=== PATIENT | male | born 1970 | race African-American/Black ===

== ENCOUNTER 2018-01-13 23:56 | Observation (INO) | payer BC, OTHER ==
[2018-01-14] MEDS ORDERED: ASPIRIN 81 MG TABLET, CHEWABLE PO ONE (01:25)
--- NOTE | 2018-01-14 01:29 | ER Document Report ---
ED Medical Screen (RME) - General Chief Complaint: Shortness Of Breath Stated Complaint: SHORTNESS OF BREATH Time Seen by Provider: 01/14/18 01:17 Notes: 47-year-old male, chief complaint of an episode at around 11 PM where he felt short of breath, he broke out into a sweat, he felt about 2 seconds of discomfort in his chest, and he felt like his heart was beating irregularly. He states symptoms resolved and have not come back. He states he did have a little bit more caffeine intake today drinking a Mountain Dew but nothing extreme. Denies recreational drugs. Denies any daily medications or past medical history. Works out regularly. Denies any known family history of cardiac disease/SD. TRAVEL OUTSIDE OF THE [place] IN LAST 30 DAYS: No - Related Data Allergies/Adverse Reactions: No Known Allergies Allergy (Verified 03/19/15 13:05) Past Medical History Pulmonary Medical History: Denies: Hx Tuberculosis Past Surgical History: Reports: Hx Orthopedic Surgery - Jaw and foot - Immunizations Hx Diphtheria, Pertussis, Tetanus Vaccination: Yes Physical Exam - Vital signs Vitals: Temp Pulse Resp BP Pulse Ox 98.1 F 62 16 138/72 H 96 01/14/18 00:28 01/14/18 00:28 01/14/18 00:01/14/18 00:01/14/18 00:28 - Respiratory Respiratory status: No respiratory distress Breath sounds: Normal. No: Decreased air movement, Wheezing - Cardiovascular Rhythm: Regular. No: Tachycardia Heart sounds: Normal auscultation, S1 appreciated, S2 appreciated Normal capillary refill: Yes Course - Vital Signs Vital signs: Temp Pulse Resp BP Pulse Ox 98.1 F 62 16 138/72 H 96 01/14/18 00:28 01/14/18 00:28 01/14/18 00:28 01/14/18 00:01/14/18 00:28
[2018-01-14 02:17] LABS: ABSOLUTE EOSINOPHILS # (AUTO) 0.2 10^3/uL (0.0-0.6); ABSOLUTE LYMPHOCYTES (AUTO) 2.1 10^3/uL (0.5-4.7); ABSOLUTE MONOCYTES (AUTO) 0.5 10^3/uL (0.1-1.4); ABSOLUTE NEUT (AUTO) 3.2 10^3/uL (1.7-8.2); BASOPHILS % (AUTO) 0.6 % (0-2); EOSINOPHILS % (AUTO) 2.6 % (0-6); HEMATOCRIT 36.3 % (37.9-51.0); HEMOGLOBIN 12.5 g/dL (13.5-17.0); LYMPHOCYTES % (AUTO) 34.4 % (13-45); MEAN CORPUSCULAR HEMOGLOBIN 31.6 pg (27.0-33.4); MEAN CORPUSCULAR HGB CONC 34.4 g/dL (32.0-36.0); MEAN CORPUSCULAR VOLUME 92 fl (80-97); MONOCYTES % (AUTO) 8.9 % (3-13); PLATELET COUNT 192 10^3/uL (150-450); RED BLOOD COUNT 3.95 10^6/uL (4.35-5.55); RED CELL DISTRIBUTION WIDTH 12.3 % (11.5-14.0); SEGMENTED NEUTROPHILS % (AUTO) 53.5 % (42-78); TOTAL CELLS COUNTED % (AUTO) 100 %
--- NOTE | 2018-01-14 02:21 | RADIOLOGY REPORT (SQ) ---
EXAM DESCRIPTION: XR CHEST 1 VIEW CLINICAL HISTORY: 47 years Male, chest pain COMPARISON: 8.10.15 NUMBER OF VIEWS/TECHNIQUE: 1/AP FINDINGS: Adequate lung volume, clear parenchyma, normal cardiac silhouette, and intact bony thorax. IMPRESSION: No acute cardiopulmonary findings.
[2018-01-14 02:40] LABS: ALANINE AMINOTRANSFERASE 45 U/L (21-72); ALBUMIN 3.8 g/dL (3.5-5.0); ALKALINE PHOSPHATASE 55 U/L (38-126); ANION GAP 8 (5-19); ASPARTATE AMINO TRANSFERASE 31 U/L (17-59); BILIRUBIN,DIRECT 0.3 mg/dL (0.0-0.4); BILIRUBIN,TOTAL 0.3 mg/dL (0.2-1.3); BLOOD UREA NITROGEN 12 mg/dL (7-20); CALCIUM 9.2 mg/dL (8.4-10.2); CARBON DIOXIDE 29 mmol/L (22-30); CHLORIDE 111 mmol/L (98-107); CREATINE KINASE 556 U/L (55-170); GLUCOSE 88 mg/dL (75-110); POTASSIUM 4.1 mmol/L (3.6-5.0); SODIUM 148.1 mmol/L (137-145); TOTAL PROTEIN 6.9 g/dL (6.3-8.2)
[2018-01-14 02:49] LABS: CREATINE KINASE MB 1.15 ng/mL (<4.55)
[2018-01-14 02:59] LABS: TROPONIN I < 0.012 ng/mL
--- NOTE | 2018-01-14 03:18 | ER Document Report ---
ED General - General Chief Complaint: Shortness Of Breath Stated Complaint: SHORTNESS OF BREATH Time Seen by Provider: 01/14/18 01:17 Notes: Patient is a pleasant 39-year-old male who presents with complaint of some exertional dyspnea throughout the day. He said tonight when he was driving his car he felt sudden onset of chest pain and felt as if his heart was slowing down. He said he felt unwell. He then got diaphoretic and sweaty. Says it lasts a few seconds and stopped and then occurred one more time. He then turned around and came to the hospital. Currently he says he feels well and the chest pain is since resolved. He denies any previous history of heart issues. He denies any anabolic steroid use. He denies any drug use. He denies any recent fevers or infections. Said his mother has some form of heart disease but is not exactly sure what kind she has. He has no other complaints at this time. He is otherwise healthy does not take medications. TRAVEL OUTSIDE OF THE [place] IN LAST 30 DAYS: No - Related Data Allergies/Adverse Reactions: No Known Allergies Allergy (Verified 03/19/15 13:05) Past Medical History - Social History Smoking Status: Never Smoker Frequency of alcohol use: None Drug Abuse: None Family History: Reviewed & Not Pertinent Pulmonary Medical History: Denies: Hx Tuberculosis Past Surgical History: Reports: Hx Orthopedic Surgery - Jaw and foot - Immunizations Hx Diphtheria, Pertussis, Tetanus Vaccination: Yes Review of Systems - Review of Systems Notes: My Normal Review Basic REVIEW OF SYSTEMS: CONSTITUTIONAL : Denies fever, chills, or sweats. Denies recent illness. EENT: Denies eye, ear, throat, or mouth pain or symptoms. Denies nasal or sinus congestion. CARDIOVASCULAR: Had chest pain RESPIRATORY: Denies cough, cold, or chest congestion. Denies shortness of breath, difficulty breathing, or wheezing. GASTROINTESTINAL: Denies abdominal pain. Denies nausea, vomiting, or diarrhea. MUSCULOSKELETAL: Denies neck or back pain or joint pain or swelling. SKIN: Denies rash or skin lesions. NEUROLOGICAL: Denies altered mental status or loss of consciousness. Denies headache. Denies weakness or paralysis or loss of use of either side. Denies problems with gait or speech. Denies sensory or motor loss. PSYCHIATRIC: Denies anxiety or stress or depression. ALL OTHER SYSTEMS REVIEWED AND NEGATIVE. Physical Exam - Vital signs Vitals: Temp Pulse Resp BP Pulse Ox 98.1 F 62 16 138/72 H 96 01/14/18 00:28 01/14/18 00:28 01/14/18 00:28 01/14/18 00:28 01/14/18 00:28 - Notes Notes: General Appearance: Well nourished, alert, cooperative, no acute distress, no obvious discomfort. Well-appearing. Vitals: reviewed, See vital signs table. Head: no swelling or tenderness to the head Eyes: PERRL, EOMI, Conjuctiva clear Mouth: No decreasd moisture Throat: No tonsillar inflammation, No airway obstruction, No lymphadenopathy Lungs: No wheezing, No rales, No rhonci, No accessory muscle use, good air exchange bilaterally. Heart: Normal rate, Regular rythm, No murmur, no rub Abdomen: Normal BS, soft, No rigidity, No abdominal tenderness, No guarding, no rebound, no abdominal masses, no organomegaly Extremities: strength 5/5 in all extremities, good pulses in all extremities, no swelling or tenderness in the extremities, no edema. Skin: warm, dry, appropriate color, no rash Neuro: speech clear, oriented x 3, normal affect, responds appropriately to questions. Course - Re-evaluation Re-evalutation: 01/14/18 05:47 The cause of the patient's episode is not clear. I am very concerned that the patient had this onset of chest pain and diaphoresis. This could represent an underlying arrhythmia. His initial cardiac troponin is negative. He has never had these symptoms before. I do not suspect anxiety the patient is very calm is no history of anxiety and had no reason to be think telemetry observation is appropriate. I did speak with the hospitalist, Dr. Fischer, who agrees to evaluate the patient for admission. Dictation of this chart was performed using voice recognition software; therefore, there may be some unintended grammatical errors. - Vital Signs Vital signs: Temp Pulse Resp BP Pulse Ox 98.1 F 62 16 138/72 H 96 01/14/18 00:28 01/14/18 00:28 01/14/18 00:28 01/14/18 00:28 01/14/18 00:28 - Laboratory Result Diagrams: 01/14/18 02:03 01/14/18 02:03 Laboratory results interpreted by me: 01/14/18 01/14/18 01/14/18 02:03 02:03 02:03 RBC 3.95 L Hgb 12.5 L Hct 36.3 L D-Dimer 0.74 H Sodium 148.1 H Chloride 111 H Creatine Kinase 556 H Urine Urobilinogen 01/14/18 04:00 RBC Hgb Hct D-Dimer Sodium Chloride Creatine Kinase Urine Urobilinogen 4.0 H - EKG Interpretation by Me Additional EKG results interpreted by me: 01/14/18 03:07 EKG is reviewed and interpreted by me. EKG shows sinus rhythm with rate of [address] segment elevation or depression. UT interval, QRS duration, QTc intervals are within normal range. She does have T-wave inversion in lead III but this is unchanged comparison to his old EKG from March 19, 2015. Discharge - Discharge Clinical Impression: Chest pain Qualifiers: Chest pain type: unspecified Qualified Code(s): R07.9 - Chest pain, unspecified Condition: Stable Disposition: ADMITTED OBSERVATION Admitting Provider: Hospitalist Unit Admitted: Telemetry
[2018-01-14 04:17] LABS: APPEARANCE,URINE CLEAR; BILIRUBIN,URINE NEGATIVE (NEGATIVE); COLOR,URINE YELLOW; GLUCOSE, URINE NEGATIVE (NEGATIVE); KETONES,URINE NEGATIVE (NEGATIVE); LEUKOCYTE ESTERASE,URINE NEGATIVE (NEGATIVE); NITRITE,URINE NEGATIVE (NEGATIVE); PROTEIN,URINE NEGATIVE (NEGATIVE); URINE SPECIFIC GRAVITY 1.021
[2018-01-14] MEDS ORDERED: NORMAL SALINE 1000 ML 1,000 ML IV ONE (04:29)
[2018-01-14 04:31] LABS: URINE AMPHETAMINES SCREEN NEGATIVE; URINE BARBITURATES SCREEN NEGATIVE; URINE BENZODIAZEPINES SCREEN NEGATIVE; URINE COCAINE SCREEN NEGATIVE; URINE MARIJUANA (THC) SCREEN NEGATIVE; URINE METHADONE SCREEN NEGATIVE; URINE PHENCYCLIDINE SCREEN NEGATIVE
--- NOTE | 2018-01-14 05:36 | RADIOLOGY REPORT (SQ) ---
EXAM DESCRIPTION: CT CHEST ANGIOGRAPHY WITHOUT THEN WITH IV CONTRAST CLINICAL HISTORY: 47 years Male, chest pain Comparison: None. Technique: IV contrast. Coronal and sagittal reformat. 3d reconstruction. This exam was performed according to our departmental dose-optimization program, which includes automated exposure control, adjustment of the mA and/or kV according to patient size and/or use of iterative reconstruction technique.[facility]: Dose Right [facility]: CareDose [facility]: Dose Right [facility]: Teradose 4D [facility]: Athenix LIMITATIONS: None Findings: No pulmonary embolus. No right ventricular strain. Clear lungs. Inferior neck, axillae, mediastinum, lungs, airway, lymphatics, heart, vasculature, upper abdomen, and musculoskeleton appear unremarkable. Impression: No pulmonary embolus. No acute cardiopulmonary findings.
[2018-01-14] MEDS ORDERED: DEXTROSE 50%-WATER 25 GM/50 ML DISP.SYRIN IV PRN ×2 (06:29)
[2018-01-14] MEDS ORDERED: GLUCAGON,HUMAN RECOMB 1 MG INJ SUBCUT PRN (06:29)
[2018-01-14] MEDS ORDERED: MAG HYDROX/AL HYDROX/SIMETH SUSP 30 ML UDCUP PO PRN (06:29)
[2018-01-14] MEDS ORDERED: DEXTROSE 40% GEL 15 GM TUBE PO PRN ×2 (06:29)
--- NOTE | 2018-01-14 06:35 | PDOC H&P ---
History of Present Illness Admission Date/PCP: 01/14/18 06:05 Patient complains of: Palpitations and chest tightness History of Present Illness: JOSEFINA CARROLL is a 47 year old male with a past medical history of benign positional vertigo. Patient presents 30 minutes after an episode of chest tightness and palpitations associated with shortness of breath which was nonradiating 3 out of 5 intensity lasting approximately 10 minutes resolving spontaneously while at rest. Patient admits previous episode several years ago prompting a cardiac stress test which was negative. Patient denies exacerbating or alleviating factors. No alcohol, drugs, tobacco, excessive caffeine or dietary supplements. Initial workup is unremarkable he is referred to the hospitalist for admission. Past Medical History Medical History: None Pulmonary Medical History: Denies: Tuberculosis Past Surgical History Past Surgical History: Reports: Orthopedic Surgery - Jaw and foot Social History Information Source: Patient Lives with: Spouse/Significant other Smoking Status: Never Smoker Frequency of Alcohol Use: None Hx Recreational Drug Use: No Drugs: None Hx Prescription Drug Abuse: No - Advance Directive Resuscitation Status: Full Code Family History Family History: DM Parental Family History Reviewed: Yes Children Family History Reviewed: Yes Sibling(s) Family History Reviewed.: Yes Medication/Allergy Home Medications: Meclizine HCl 25 mg PO Q8 #30 tablet 03/19/15 Allergies/Adverse Reactions: No Known Allergies Allergy (Verified 03/19/15 13:05) Review of Systems Constitutional: ABSENT: chills, fever(s), headache(s), weight gain, weight loss Eyes: ABSENT: visual disturbances Ears: ABSENT: hearing changes Cardiovascular: ABSENT: chest pain, dyspnea on exertion, edema, orthropnea, palpitations Respiratory: ABSENT: cough, hemoptysis Gastrointestinal: ABSENT: abdominal pain, constipation, diarrhea, hematemesis, hematochezia, nausea, vomiting Genitourinary: ABSENT: dysuria, hematuria Musculoskeletal: ABSENT: joint swelling Integumentary: ABSENT: rash, wounds Neurological: ABSENT: abnormal gait, abnormal speech, confusion, dizziness, focal weakness, syncope Psychiatric: ABSENT: anxiety, depression, homidical ideation, suicidal ideation Endocrine: ABSENT: cold intolerance, heat intolerance, polydipsia, polyuria Hematologic/Lymphatic: ABSENT: easy bleeding, easy bruising Physical Exam Vital Signs: Temp Pulse Resp BP Pulse Ox 98.1 F 62 16 138/72 H 96 01/14/18 00:28 01/14/18 00:28 01/14/18 00:28 01/14/18 00:28 01/14/18 00:28 General appearance: PRESENT: no acute distress, well-developed, well-nourished Head exam: PRESENT: atraumatic, normocephalic Eye exam: PRESENT: conjunctiva pink, EOMI, PERRLA. ABSENT: scleral icterus Ear exam: PRESENT: normal external ear exam Mouth exam: PRESENT: moist, tongue midline Neck exam: ABSENT: carotid bruit, JVD, lymphadenopathy, thyromegaly Respiratory exam: PRESENT: clear to auscultation carolyn. ABSENT: rales, rhonchi, wheezes Cardiovascular exam: PRESENT: RRR. ABSENT: diastolic murmur, rubs, systolic murmur Pulses: PRESENT: normal dorsalis pedis pul Vascular exam: PRESENT: normal capillary refill GI/Abdominal exam: PRESENT: normal bowel sounds, soft. ABSENT: distended, guarding, mass, organolmegaly, rebound, tenderness Rectal exam: PRESENT: deferred Extremities exam: PRESENT: full ROM. ABSENT: calf tenderness, clubbing, pedal edema Neurological exam: PRESENT: alert, awake, oriented to person, oriented to place , oriented to time, oriented to situation, CN II-XII grossly intact. ABSENT: motor sensory deficit Psychiatric exam: PRESENT: appropriate affect, normal mood. ABSENT: homicidal ideation, suicidal ideation Skin exam: PRESENT: dry, intact, warm. ABSENT: cyanosis, rash Results Impressions: Chest X-Ray 01/14/18 01:25 IMPRESSION: No acute cardiopulmonary findings. 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 (2) Chest pain Qualifiers: Chest pain type: unspecified Qualified Code(s): R07.9 - Chest pain, unspecified Is this a current diagnosis for this admission?: Yes Plan: Atypical chest pain though the patient's pain is atypical there are multiple risk factors for coronary artery disease and subsequently will observe and evaluation of acute coronary syndrome versus coronary artery disease with anginal equivalents. Cardiac monitoring blood pressure Q6 hours ,TSH, lipid profile, serial cardiac enzymes and cardiac stress test - Time Time Spent: 30 to 50 Minutes
[2018-01-14] MEDS ORDERED: HEPARIN SOD (PORCINE) 5,000 UNIT/ML 1 ML SYRINGE SUBCUT ONE (06:45)
[2018-01-14 08:35] LABS: CREATINE KINASE MB 0.97 ng/mL (<4.55)
[2018-01-14 08:42] LABS: TROPONIN I 0.043 ng/mL
[2018-01-14] MEDS: DOCUSATE SODIUM 100 MG CAPSULE PO SCH ×2 (10:24→17:02)
--- NOTE | 2018-01-14 11:45 | EKG REPORT ---
SEVERITY:- OTHERWISE NORMAL ECG - SINUS ARRHYTHMIA, RATE 51-75 : Confirmed by: Giovana Woodward MD 14-Jan-2018 11:44:25
--- NOTE | 2018-01-14 12:27 | DRAGON STRESS TEST REPORT ---
EXERCISE TREADMILL TEST. DATE OF PROCEDURE: January 14, 2018 INDICATION: Patient with unspecified chest pain. Coronary risk factors: Diabetes Resting EKG: Sinus rhythm, no baseline ST segment changes. Stress EKG: No significant changes noted with with exercise treadmill. Reason for termination: Submaximal stress test because of abnormal troponin I. PROCEDURE REPORT: Baseline heart rate: 55 beats per minute with blood pressure of 138/90. Patient had no significant complaints at baseline. Patient was exercised on a standard Bandar protocol. Patient exercised for total of 6 minutes and 08 seconds. Stress test stopped as the target heart rate for submaximal heart rate is 75%. Patient denied any chest arm or neck discomfort during the exercise, at peak exercise or in recovery. If automatic blood pressure recorded and if felt not accurate manual blood pressure then were recorded at appropriate intervals. Peak heart rate: 134 bpm, 7 7 of predicted maximum. Peak blood pressure: 184/77 mmHg. Double product: 23.2] Kcal Exercise EKG: No significant ST segment changes noted. CONCLUSIONS: Normal EKG and hemodynamic response to submaximal exercise. Negative EKG changes with exercise at submaximal stress. RECOMMENDATIONS: Aggressive risk factor modification, medical therapy. Consider cardiology consultation if clinically indicated. Recommend repeating a maximal stress test in about 4-6 weeks. Chyna Mondragon M.D., [employer] Mechanical Engineer servicing manager, Board certified in cardiovascular diseases, Nuclear cardiology, Echocardiography Cardiac CT and cardiac MRI Ph. [phone] Ph. [phone] [facility]
--- NOTE | 2018-01-14 13:36 | PDOC CONSULTATION ---
Consultation Consult Date: 01/14/18 Attending physician:: ANTONIO CLINE Consult reason:: Chest pain and bradycardia History of Present Illness Admission Date/PCP: 01/14/18 06:05 Patient complains of: Heart rate dropping History of Present Illness: JOSEFINA CARROLL is a 47 year old male with a past medical history of benign positional vertigo. Patient presents 30 minutes after an episode of chest tightness and palpitations associated with shortness of breath which was nonradiating 3 out of 5 intensity lasting approximately 10 minutes resolving spontaneously while at rest. Patient admits previous episode several years ago prompting a cardiac stress test which was negative. Patient denies exacerbating or alleviating factors. No alcohol, drugs, tobacco, excessive caffeine or dietary supplements. Initial workup is unremarkable he is referred to the hospitalist for admission. This history obtained by the hospitalist was reviewed with the patient. Patient also told me that he was driving when he felt his heart rate suddenly dropped. This was associated with some dizziness but no syncope or near syncope. Patient denied any prior history of heart problem. Patient does exercise and lifts weight. Patient does describe history of snoring but denied any daytime sleepiness, fatigue or tiredness. Past Medical History Pulmonary Medical History: Denies: Tuberculosis Psychiatric Medical History: Denies: Depression Past Surgical History Past Surgical History: Reports: Orthopedic Surgery - Jaw and foot Social History Information Source: Patient Lives with: Spouse/Significant other Smoking Status: Never Smoker Frequency of Alcohol Use: None Hx Recreational Drug Use: No Drugs: None Hx Prescription Drug Abuse: No - Advance Directive Resuscitation Status: Full Code Family History Family History: DM Parental Family History Reviewed: Yes Children Family History Reviewed: Yes Sibling(s) Family History Reviewed.: Yes - Negative for premature coronary artery disease or sudden cardiac in the family amongst first degree relatives. Medication/Allergy Home Medications: No Home Medications 01/14/18 Allergies/Adverse Reactions: No Known Allergies Allergy (Verified 01/14/18 09:32) Review of Systems Review of Systems: Please see history of present illness and past medical history as wall. Constitutional: No fever or chills reported. Head : No recent chronic headaches, recent head injury. Eyes: No recent eye pain, diplopia, redness, discharge, acute visual changes. Ears: No recent chronic ear pain, acute hearing loss, ear discharge. Oral cavity: No recent ulcerations, bleeding, oral cavity discomfort. Neck: No recent acute neck pain reported. Hematologic: No recent easy bruising or bleeding. Lymphatic: No recent lymph node enlargement reported. Cardiovascular system review: See history of present illness. Respiratory system review: No hemoptysis or blood clots in the lungs reported. Gastrointestinal system review: Negative for any recent acute hematemesis, melena. Genitourinary system review: No recent acute or chronic hematuria, flank pain, UTI etc. reported. Skin system review: Negative for any recent abnormal bruising, no rash, no pruritus reported. Neurologic: No prior history of strokes, mini strokes, seizure disorder. Psychologic: No history of major psychosis or major depression reported. Musculoskeletal: Minor aches and pains reported. No acute joint swelling reported. Endocrine: No recent polyuria, polydipsia, recent heat or cold intolerance. Physical Exam Vital Signs: Temp Pulse Resp BP Pulse Ox 98.2 F 44 L 18 126/71 H 99 01/14/18 12:06 01/14/18 12:06 01/14/18 12:06 01/14/18 12:06 01/14/18 12:06 Exam: GENERAL: well-nourished and in no acute distress. Alert and oriented x3 HEAD: Atraumatic, normocephalic. EYES: Pupils equal round and reactive to light, extraocular movements intact, sclera anicteric, conjunctiva are normal. ENT: TMs normal, nares patent, oropharynx clear without exudates. Moist mucous membranes. No oral ulcerations or bleeding gums noted NECK: supple without lymphadenopathy. Trachea is central. No cervical or axillary lymphadenopathy noted. Carotids are 2+, JVD WNL LUNGS: Respiration seems nonlabored, no significant accessory muscle action noted. Breath sounds clear to auscultation bilaterally and equal noted. No wheezes rales or rhonchi noted. No significant dullness noted on percussion. CHEST: Palpation of the chest wall shows no significant chest wall tenderness. 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 ABDOMEN: Soft, no significant tenderness appreciated, normoactive bowel sounds. No guarding, no rebound. No rigidity noted . No masses appreciated. EXTREMITIES: Pedal pulses are 1-2+, no calf tenderness noted. No clubbing or cyanosis. negative pedal edema noted NEUROLOGICAL: Focused neurological exam showed no significant neurologic deficit. Normal speech, no focal weakness appreciated. PSYCH: Normal mood, normal affect. Judgment and insight within normal limits. SKIN: No significant ecchymosis, skin is noted to be warm. MUSCULOSKELETAL EXAM: No significant acute joint swelling noted. Results Laboratory Results: 01/14/18 01/14/18 07:50 07:50 Creatine Kinase 457 H CK-MB (CK-2) 0.97 Troponin I 0.043 EKG Comments: Sinus rhythm, no acute ST-T wave changes are noted Impressions: Chest X-Ray 01/14/18 01:25 IMPRESSION: No acute cardiopulmonary findings. Assessment & Plan - Diagnosis (1) Bradycardia Is this a current diagnosis for this admission?: Yes (2) Abnormal creatine kinase level Is this a current diagnosis for this admission?: Yes (3) Chest pain Qualifiers: Chest pain type: unspecified Qualified Code(s): R07.9 - Chest pain, unspecified Is this a current diagnosis for this admission?: Yes - Notes Notes: Bradycardia: Most likely related to increased vagal tone. Patient also does a lot of exercise and weight lifting. Patient may have underlying sleep apnea syndrome which can increase vagal tone. Abnormal creatinine kinase level: Most likely related to weightlifting. Patient was also noted to have elevated serum sodium therefore could well be dehydrated. Patient will benefit from hydration. Chest pain: Patient has no significant cardiac risk factors therefore low pretest probability of underlying CAD. A treadmill stress test was actually performed. However I opted to do a submaximal stress test because by the time he was seen in the stress lab, the second result of troponin I came back and was noted to be trending up. Therefore a submaximal stress test was performed and this was negative for any significant EKG changes. Patient also did not have any chest pain during exercise. Patient did achieve adequate double product. A 2D echocardiogram is pending at the time of dictation. A lipid panel has been ordered. Recommend repeating a troponin I about 8 hours from the last one and if it is trending down, patient could be discharged with close cardiology follow-up. - Time Time Spent: 30 to 50 Minutes - CODE STATUS was discussed, patient remains full code. Surrogate decision-maker patient's . Multiple medical problems were addressed. More than 50% of the time spent coordinating care, discussing management plans with involved caregivers. Management plans discussed with involved personnels. Medical decision making was of moderate to high complexity , patient's has multiple comorbidities. Medications reviewed and adjusted accordingly: Yes
[2018-01-14] MEDS ORDERED: HEPARIN SOD (PORCINE) 5,000 UNIT/ML 1 ML SYRINGE SUBCUT SCH (14:00)
[2018-01-14 14:07] LABS: CHOLESTEROL 114.96 mg/dL (0-200); TRIGLYCERIDES 75 mg/dL (<150)
[2018-01-14 14:18] LABS: DIRECT LDL 64 mg/dL (<100)
[2018-01-14 15:57] LABS: CREATINE KINASE MB 0.97 ng/mL (<4.55); TROPONIN I 0.036 ng/mL
[2018-01-14 16:50] VITALS: BP 132/88
--- NOTE | 2018-01-14 18:22 | PDOC DISCHARGE SUMMARY ---
General - Admit/Disc Date/PCP Admission Date/Primary Care Provider: 01/14/18 06:05 Discharge Date: 01/14/18 - Discharge Diagnosis (1) Chest pain Is this a current diagnosis for this admission?: Yes Summary: Treadmill stress test negative for ischemia. Patient feels he pulled a muscle using chest press while weight lifting (2) Bradycardia Is this a current diagnosis for this admission?: Yes Summary: Patient works out daily. 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 Patient would like to do echocardiogram as an outpatient (3) Abnormal creatine kinase level Is this a current diagnosis for this admission?: Yes - Additional Information Resuscitation Status: Full Code Discharge Diet: Regular Discharge Activity: Activity As Tolerated Home Medications: No Home Medications 01/14/18 History of Present Illness Patient complains of: Chest tightness and palpitations History of Present Illness: JOSEFINA CARROLL is a 47 year old male with a past medical history of benign positional vertigo. Patient presents 30 minutes after an episode of chest tightness and palpitations associated with shortness of breath which was nonradiating 3 out of 5 intensity lasting approximately 10 minutes resolving spontaneously while at rest. Patient admits previous episode several years ago prompting a cardiac stress test which was negative. Patient denies exacerbating or alleviating factors. No alcohol, drugs, tobacco, excessive caffeine or dietary supplements. Initial workup is unremarkable he is referred to the hospitalist for admission. Hospital Course Hospital Course: Patient was admitted to [facility] on telemetry. Initial troponin was less than 0.012. Second troponin was indeterminate at 0.043. Third troponin was 0.035. He underwent treadmill stress test by Dr. Mondragon. Showed no ischemia. Dr. Mondragon saw the patient in consult also because of his bradycardia. He was noted to have sinus arrhythmia with heart rate from 40s-50s. Patient does exercise daily and lifts weights at the gym. His chest pain was reproducible with palpation to his pectoral muscles. He feels it is musculoskeletal in nature. Patient will follow-up with Dr. Mondragon for echocardiogram as an outpatient. Physical Exam Vital Signs: Temp Pulse Resp BP Pulse Ox 98.2 F 57 L 18 126/71 H 99 01/14/18 12:06 01/14/18 14:00 01/14/18 12:06 01/14/18 12:06 01/14/18 12:06 Intake & Output 01/13/18 01/14/18 01/15/18 06:59 06:59 06:59 Intake Total 164 Balance 164 General appearance: PRESENT: no acute distress, well-developed, well-nourished Head exam: PRESENT: atraumatic, normocephalic Eye exam: PRESENT: conjunctiva pink, EOMI, PERRLA. ABSENT: scleral icterus Ear exam: PRESENT: normal external ear exam Mouth exam: PRESENT: moist, tongue midline Neck exam: ABSENT: carotid bruit, JVD, lymphadenopathy, thyromegaly Respiratory exam: PRESENT: clear to auscultation carolyn. ABSENT: rales, rhonchi, wheezes Cardiovascular exam: PRESENT: RRR. ABSENT: diastolic murmur, rubs, systolic murmur Vascular exam: PRESENT: normal capillary refill GI/Abdominal exam: PRESENT: normal bowel sounds, soft. ABSENT: distended, guarding, mass, organolmegaly, rebound, tenderness Rectal exam: PRESENT: deferred Extremities exam: PRESENT: full ROM. ABSENT: calf tenderness, clubbing, pedal edema Neurological exam: PRESENT: alert, awake, oriented to person, oriented to place , oriented to time, oriented to situation, CN II-XII grossly intact. ABSENT: motor sensory deficit Psychiatric exam: PRESENT: appropriate affect, normal mood. ABSENT: homicidal ideation, suicidal ideation Skin exam: PRESENT: dry, intact, warm. ABSENT: cyanosis, rash Results Laboratory Results: 01/14/18 01/14/18 01/14/18 07:50 07:50 14:25 Creatine Kinase 457 H 426 H CK-MB (CK-2) 0.97 Troponin I 0.043 01/14/18 14:25 Creatine Kinase CK-MB (CK-2) 0.97 Troponin I 0.036 Impressions: Chest X-Ray 01/14/18 01:25 IMPRESSION: No acute cardiopulmonary findings. Qualifiers - * PATIENT BEING DISCHARGED WITH ANY OF THE FOLLOWING DIAGNOSIS: No Plan Discharge Plan: Home with family Time Spent: Less than 30 Minutes
== END 2018-01-14 17:51 | disposition home or self-care (01) ==
LOC: ER 23:56 → EH 01-14 06:05 → 3W 01-14 08:14
PROVIDERS: ADMIT Internal Medicine; ATTEND Internal Medicine
DX: R07.89 Other chest pain (principal); R00.1 Bradycardia, unspecified; R74.8 Abnormal levels of other serum enzymes; R00.2 Palpitations; R06.02 Shortness of breath; R61 Generalized hyperhidrosis; Z83.3 Family history of diabetes mellitus; Z82.49 Family history of ischemic heart disease and other diseases of the circulatory system
CPT/HCPCS: 93005; 99285; 96360; 36415; 82553; 82550; 83735; 84443; 85025; 80053; 81001; 84484; 80307; 85379; 80061; 93017; 71045; 71275; 93010; G0378 ×2; J7030

== ENCOUNTER 2020-05-14 06:58 | Day surgery (SDC) | payer BC, OTHER ==
[2020-05-14] MEDS ORDERED: PROPOFOL INJ 200 MG/20 ML VIAL IV ONE (07:19)
--- NOTE | 2020-05-14 08:59 | Operative Report ---
Operative Report DATE OF SURGERY: 05/14/20 Operative Report: The risk, benefits and alternatives of the procedure including the risk of bleeding, perforation requiring surgery have been explained to the patient in detail and informed consent has been obtained. Patient is placed in left, lateral decubital position. Timeout was called. Propofol medication is administered. Rectal examination is done which did not reveal any masses, tears or fissures. An Olympus videoscope was introduced into the patient's rectum. Scope was then carefully advanced all the way to the cecum. Cecum was identified by the usual anatomical landmarks including the ileocecal valve as well as the appendiceal office. Photodocumentation is obtained. Scope was then sequentially pulled back via the various segments of the colon including the ascending colon, hepatic flexure transverse colon, splenic flexure, descending colon finding to the rectosigmoid portions of the colon. Retroflexion maneuver is performed. PREOPERATIVE DIAGNOSIS: Colorectal cancer screening POSTOPERATIVE DIAGNOSIS: Right side colon inflammation status post biopsy. Diverticulosis without any evidence of diverticulitis OPERATION: Colonoscopy with biopsy SURGEON: JERAMIE COATS ANESTHESIA: LMAC TISSUE REMOVED OR ALTERED: As noted above. COMPLICATIONS: None. ESTIMATED BLOOD LOSS: None. INTRAOPERATIVE FINDINGS: As noted above. PROCEDURE: Patient tolerated the procedure well. No immediate postprocedure complications are noted. Patient is discharged in good condition. Discharge date 05/14/2020. Discharge diet: Regular. Discharge activity: Regular. 2 to 3-week follow-up to discuss findings. Patient is instructed to call the office or proceed to the emergency room should there be any further problems or questions. Wait on the pathology. If biopsies are -10-year surveillance colonoscopy.
[2020-05-14 11:24] VITALS: BP 135/72
== END 2020-05-14 09:10 | disposition home or self-care (01) ==
LOC: END 06:58
PROVIDERS: ATTEND Internal Medicine Gastroenterology
DX: Z12.11 Encounter for screening for malignant neoplasm of colon (principal); K57.90 Diverticulosis of intestine, part unspecified, without perforation or abscess without bleeding; K52.9 Noninfective gastroenteritis and colitis, unspecified; K63.89 Other specified diseases of intestine; K21.9 Gastro-esophageal reflux disease without esophagitis; Z68.39 Body mass index [BMI] 39.0-39.9, adult; Z03.818 Encounter for observation for suspected exposure to other biological agents ruled out
CPT/HCPCS: 45380; 88305 ×2; 00812; J2704; 812